=== PATIENT | male | born 1950 | race Caucasian/White ===

== ENCOUNTER 2017-08-02 08:38 | Inpatient (IN) ==
[2017-08-02] MEDS ORDERED: ANTIHEMOPHILIC FACTOR IVPB ONE ×3 (09:23→10:30)
[2017-08-02] MEDS ORDERED: VWF IVPB ONE ×3 (09:23→10:30)
[2017-08-02] MEDS: 0.9 % Sodium Chloride 1,000 ML IVC SCH (10:33)
--- NOTE | 2017-08-02 12:20 | Pre-Sedation Evaluation ---
Pre-sedation evaluation - Pre-sedation checklist Date of procedure: 08/02/17 Procedure: PPM Recent Vitals: Last Vital Signs Temp 98 F 08/02/17 10:24 Pulse 52 08/02/17 10:24 Resp 16 08/02/17 10:24 BP 115/69 08/02/17 10:24 Pulse Ox 96 08/02/17 10:24 H&P (including ROS) documented in medical record: No (NEED UPDATE) Previous reaction to sedatives/anesthetics: No Dietary Status: NPO after Midnight Airway Assessment: Patient can open mouth completely, TMJ function normal, Micrognathia (under-bite, receding chin) absent Dentition: No loose teeth or bridges Possible difficult airway: No ASA Classification *see protocol: CLASS II-Mild systemic disease Plan of Care: Pt appropriate candidate for procedure/moderate/conscious sedation , Risks/benefits of procedure/sedation discussed w/ patient/family
--- NOTE | 2017-08-02 12:20 | History & Physical Report ---
Date of Encounter: 08/02/17 Time of Encounter: 12:19 24 Hour HP Update - Instructions Instructions: If the History and Physical is less than 30 days old and was completed prior to A.M. admission and or procedure and has NOT been updated on calendar day of procedure please complete this update prior to performing procedure. - Update Patient reports changes in Medical Condition: No Changes in examination, assessment, or condition: No Changes in Medication: No Preop tests/diagnostics Reviewed: Yes Surgery Remains Indicated: Yes Consent for Planned Operative Procedure(s) Verified: Yes - Pre-Operative Checklist Preoperative Checklist Indicated: Yes Prophylactic Antibiotic Ordered: Yes
[2017-08-02] MEDS ORDERED: methylPREDNISolone 125 MG/2 ML VIAL IVP PRN (12:52)
[2017-08-02] MEDS ORDERED: Clindamycin 600 MG/50 ML 1,200 MG/100 ML IV.SOLN IVPB ONE (13:00)
[2017-08-02] MEDS ORDERED: 0.9 % Sodium Chloride 500 ML ONE (13:00)
[2017-08-02] MEDS ORDERED: methylPREDNISolone 125 MG/2 ML VIAL ONE (13:00)
[2017-08-02] MEDS ORDERED: *HR* Midazolam HCl 2 MG/2 ML VIAL ONE (13:29)
[2017-08-02] MEDS ORDERED: *HR* FentaNYL (PF) 100 MCG/2 ML VIAL ONE (13:30)
[2017-08-02] MEDS ORDERED: Triamcinolone Acet 0.1% CRM 15 GM TUBE TP PRN (15:25)
[2017-08-02] MEDS ORDERED: Hydrocortisone Rectal 2.5% CRM 28 GM TUBE RC PRN (15:25)
[2017-08-02] MEDS ORDERED: GuaiFENesin Liq 200 MG/10 ML UDC PO PRN (15:25)
--- NOTE | 2017-08-02 15:55 | Electrocardiograph Report ---
[place] [address] Test Date: 2017-08-02 Pat Name: Kentrell Zepeda Department: 106 Room: Gender: M Blender / Cook: : 1950 Requested By: Kentrell Molina Order Number: [id number] Reading MD: Mary Jimenez Measurements Intervals [place] Rate: 48 P: 29 VA: 274 QRS: 12 QRSD: 113 T: 85 QT: 453 QTc: 419 Interpretive Statements SINUS BRADYCARDIA WITH FIRST DEGREE AV BLOCK INTRAVENTRICULAR CONDUCTION DELAY NONSPECIFIC ST & T-WAVE ABNORMALITY Electronically Signed On 08-02-2017 15:54:24 EDT by Mary Jimenez
--- NOTE | 2017-08-02 17:32 | Oncology Inp Consult Note ---
<Margo Harry - Last Filed: 08/03/17 10:49> Date of Encounter: 08/02/17 Time of Encounter: 17:32 Assessment and Plan (1) Von Willebrand disease Status: Acute Assessment and plan: Von Willebrand's disease type II M. S/P permanent pacemaker placement today without complication. He did have hives following his administration of Humate P in the semiconductor lab technician- recommend Benadryl be administered 30 minutes prior to upcoming Humate P infusions Unfotunately, we are unable to obtain serial von Willebrand panels at this facility as this is a send out lab-will plan to administer Humate P daily for a total of 5 days as dosed per Dr. Lozano, ending with his last dose on Tuesday. Clinically, he doing quite well and without any evidence of bleeding. The plan as above was discussed with patient and patients at bedside today. - Data of Consult Patient: known to practice within the last 3 years Consult date: 08/02/17 Requesting Physician: Kentrell Molina, Primary Care Provider: PCP NM - Consult Narrative Reason for consult: Type 2M von Willebrand Disease History of present illness: Mr. Zepeda is a 66 year old male with Type 2M von Willebrand Disease, history of postoperative provoked PE, symptomatic bradycardia, right neck pain with radiculopathy. He presents for pacemaker placement and is admitted for perioperative management of his 2M von Willebrand Disease with daily serial Humate P infusions. He unfortunately failed his DDAVP administration trial. His permanent pacemaker was placed on 08/02/[address] Molina. He did experiences a hive breakout with his Humate P administration in the semiconductor lab technician and was given benadryl which resolved his symptoms. Past Med Surg Social Fam HX - Past Medical History Medical history: COPD, diabetes, hypertension, valvular heart disease, other Psychiatric history: anxiety, depression, PTSD - Social History Smoking Status: Former smoker Smokeless Tobacco Status: No Alcohol use: none Drug use: none Medications and Allergies Amlodipine Besylate 5 mg PO DAILY 05/27/17 [History] Aspirin [Lo-Dose Aspirin EC] 81 mg PO DAILY 05/27/17 [History] Budesonide/Formoterol 160/4.5 [Symbicort 160/4.5] 2 puff IH BIDR 05/27/17 [ History] Furosemide [Lasix] 40 mg PO DAILY 05/27/17 [History] Hydrocortisone [Proctozone-Hc] 30 gm RC BID PRN 05/27/17 [History] Lisinopril [Zestril] 20 mg PO BID 05/27/17 [History] Omeprazole [PriLOSEC] 20 mg PO DAILY 05/27/17 [History] Sertraline [Zoloft] 100 mg PO DAILY 05/27/17 [History] Trazodone HCl 200 mg PO HS 05/27/17 [History] Albuterol Sulfate [Proventil Hfa] 6.7 gm IH DAILY 08/02/17 [History] Atorvastatin [Lipitor] 20 mg PO HS 08/02/17 [History] Guaifenesin 400 mg PO QID PRN 08/02/17 [History] HYDROcodone/Acet 5/325 mg [[place] 5-325 mg] 1 tab PO Q8H PRN 08/02/17 [History] Mupirocin [Bactroban Oint] 22 gm TP DAILY PRN 08/02/17 [History] Triamcinolone Acet 0.1% CRM [Kenalog] 1 appl TP BID PRN 08/02/17 [History] 3 Allergy/AdvReac Type Severity Reaction Status Date / Time Penicillins Allergy Swelling Verified 05/31/16 15:29 of Lip/Tongue/Throat Constitutional: Absent: chills, fatigue, fever(s), weakness Eyes: Absent: change in vision Nose, mouth and throat: Absent: bleeding gums, dysphagia Cardiovascular: Absent: chest pain, irregular heart rhythm, palpitations Additional comments: report post operative incision discomfort and left shoulder/muscular pain with movement Respiratory: Present: as per HPI. Absent: cough, dyspnea, wheezing Gastrointestinal: Absent: abdominal pain, change in bowel habits, hematemesis, hematochezia, melena, nausea, vomiting Additional comments: denies dysuria or hematuria Musculoskeletal: Present: as per HPI, neck pain Integumentary: Present: as per HPI Neurological: Absent: focal weakness, frequent falls Psychiatric: Absent: change in appetite Additional comments: reports anxiety regarding his procedure Hematologic/Lymphatic: Present: as per HPI Oncology - Exam - Constitutional Vitals: Temp Pulse Resp BP Pulse Ox 97.5 F L 61 14 135/80 94 08/02/17 15:30 08/02/17 15:55 08/02/17 15:55 08/02/17 15:55 08/02/17 15:55 General appearance: cooperative, no acute distress, no febrile - Head Head exam: Present: atraumatic - ENT ENT exam: Present: mucous membranes moist - Respiratory Respiratory exam: Present: CTAB. Absent: respiratory distress - Cardiovascular Cardiovascular exam: Present: RRR, +S1, +S2 - GI/Abdominal GI/Abdominal exam: Present: normal bowel sounds, soft. Absent: tenderness - Extremities Exam Extremities exam: Present: normal inspection. Absent: calf tenderness - Neurological Exam Neurological exam: Present: alert, oriented X3, no focal deficits, strengths equal and symetr throughout - Psychiatric Psychiatric exam: Present: normal affect, normal mood - Skin Skin exam: Present: dry, normal color, warm Additional comments: surgical incision to left upper chest with no drainage/bleeding,dressing dry and intact Consult Discharge Plan - Plan [facility]errals: [facility] [Primary Care Provider] - <Rajat Raygoza - Last Filed: 08/03/17 17:41> Date of Encounter: 08/03/17 - Data of Consult Requesting Physician: Kentrell Molina, Primary Care Provider: PCP NM - Consult Narrative History of present illness: Mr. Zepeda is a 66 year old male Oncology - Exam - Constitutional Vitals: Temp Pulse Resp BP Pulse Ox 97.5 F L 69 14 118/74 92 08/02/17 15:30 08/02/17 17:52 08/02/17 15:55 08/02/17 17:52 08/02/17 17:52 - Attending Attestation Von Willebrand's disease type II M. Mostly autosomal dominant He was diagnosed at hematology [facility] in 2004. As then he had only 2 times where he has to have Humate-P last one around 2014 Had blunt trauma to knee/leg one time but did not have major bleeding and he did not go to the doctor. But he has increased bleeding when he cuts himself His von Willebrand's factor activity baseline was around 30% indicating moderate disease. On von Willebrand Antigen levels are normal and factor VIII activity was 50% on May 2017 Normal multimer distribution If the factor activity is more than 30% the risk of bleeding is fairly low Patients with type II AM do not respond well to DDAVP. Humate-P to bring factor levels more than 50% recommended during any surgical procedure 2. He had pacemaker introduced placed today on 08/02/2017. Had 1 dose of Humate-P her to the procedure. Apparently he had allergic type reaction with some shortness of breath. His cussed with that patient address mostly hives. Usually allergic reactions happen when there are inhibitors. We will check von Willebrand activity tomorrow and factor VIII activity. He would not have the results back in time. Discussed with Dr Lozano. The plan is to give further doses of Humate-P as planned with the Benadryl to minimize allergic reaction Discussed with patient. Humate-P is a blood products and allergic reactions can happen due to various reasons like any other blood products. He has recurrent reactions may consider give Decadron 4 mg IV prior to the Humate-P Clinically he is doing well without evidence of bleeding
[2017-08-02] MEDS ORDERED: Clindamycin 900 MG/50 ML 900 MG/50 ML IV.SOLN IVPB SCH (18:00)
[2017-08-02] MEDS: traZODone 50 MG TABLET PO SCH (19:42)
[2017-08-02] MEDS: Lisinopril 20 MG TABLET PO SCH (19:42)
[2017-08-02] MEDS: Budesonide/Formoterol 160/4.5 MDI IH SCH (20:40)
[2017-08-02] MEDS: *HR* HYDROcodone/Acet 5/325 mg TABLET PO PRN (20:57)
[2017-08-03 07:40] LABS: BUN/Creatinine Ratio 26 (6-26); Blood Urea Nitrogen 18 mg/dL (8-23); Carbon Dioxide 29 mEq/L (23-29); Chloride 104 mEq/L (98-107); Potassium 4.2 mEq/L (3.5-5.1); Sodium 138 mEq/L (136-145); eGFR For African Americans > 60 (> 60); eGFR For Non-African Americans > 60 (> 60)
[2017-08-03] MEDS: Budesonide/Formoterol 160/4.5 MDI IH SCH ×2 (07:45→22:31)
[2017-08-03] MEDS: Lisinopril 20 MG TABLET PO SCH ×2 (08:17→21:04)
[2017-08-03] MEDS: Furosemide 40 MG TABLET PO SCH (08:17)
[2017-08-03] MEDS: amLODIPine 5 MG TABLET PO SCH (08:17)
[2017-08-03] MEDS: *HR* HYDROcodone/Acet 5/325 mg TABLET PO PRN ×2 (08:17→21:03)
[2017-08-03] MEDS: Aspirin Enteric Coated 81 MG Tablet PO SCH (08:17)
[2017-08-03 08:55] LABS: Hemoglobin 13.1 g/dL (12.9-16.9); Mean Corpuscular HGB Conc 33.6 g/dL (31.6-35.5); Mean Corpuscular Hemoglobin 27.7 pg (28.0-33.3); Mean Corpuscular Volume 82.5 fL (83.0-100.0); Mean Platelet Volume 9.8 fL (9.4-12.4); Platelet Count 185 K/mcL (140-400); Red Blood Count 4.73 M/mcL (4.19-5.50); Red Cell Distribution Width 13.8 % (11.5-14.5)
[2017-08-03] MEDS ORDERED: ANTIHEMOPHILIC FACTOR IVPB ONE (09:00)
[2017-08-03] MEDS ORDERED: WATER FOR INJ IVPB ONE (09:00)
[2017-08-03] MEDS ORDERED: [UNRECOGNIZED DRUG - OTHER] IVPB ONE (09:00)
[2017-08-03] MEDS ORDERED: ANTIHEMOPHILIC FACTOR IVPB SCH (09:00)
[2017-08-03] MEDS ORDERED: VWF IVPB ONE (09:00)
[2017-08-03] MEDS ORDERED: VWF IVPB SCH (09:00)
[2017-08-03] MEDS: 0.9 % Sodium Chloride 1,000 ML IVC SCH (09:32)
--- NOTE | 2017-08-03 10:25 | Electrophysiology ProgressNote ---
Date of Encounter: 08/03/17 Time of Encounter: 10:00 Assessment and Plan (1) S/P cardiac pacemaker procedure Current Visit: Yes Status: Acute Per EP: -S/p pacemaker yesterday for sick sinus syndrome. -Chest x-ray without evidence of pneumothorax. -Left chest wall dressing clean, dry, intact. -Device check with normal functioning pacemaker. -Hemoglobin stable. -Will continue to monitor, will need to be inpatient for humate infusions per hematology. -Plan for discharge when ok with hematology. (2) Von Willebrand disease Current Visit: No Status: Chronic Per cardiology: -Known von willebrand disease. -Receiving humate infusions. -PLan for last infusion on Tuesday, per hematology note. -Appreciate hematology recommendations and assistance. Discussion w patient/family: The assessment and plan as outlined above was discussed with the patient and/or family members who expressed understanding and agreement. All questions were answered. Thank you for involving us in the care of your patient. Please call with any questions. Discussed and reviewed with Dr.John Molina. Subjective Principal diagnosis: s/p pacemaker Interval history: Patient is s/p permanent pacemaker placement yesterday. Is receiving humate infusions per hematology for von willebrands. Objective Vital Signs, Last 4 Hours Temp Pulse Resp BP Pulse Ox 08/03/17 07:53 97 08/03/17 07:49 18 97 08/03/17 07:13 97.4 F L 61 154/83 96 General: Conversant, No Apparent Distress HEENT: Atraumatic, Normocephaly, Mucus Membranes Moist Neck: No JVD, Normal carotid pulses Cardiac: Reg Rate and Rhythm, Normal S1 and S2, No Murmur Lungs: Normal Breath Sounds, No Wheeze, Rales, Rhonchi Neuro: Alert and responsive, No focal deficits noted Abdomen: Soft, Non-Tender Skin: No rashes noted on visualized skin Musculoskeletal: No Chest Wall Tenderness, Other (Left chest wall dressing clean , dry, intact. ) Extremities: No Clubbing, No Cyanosis, No Edema, Normal Pulses Results 08/03/17 08:35 08/03/17 07:09 Lab Results Impressions Chest X-Ray 08/02/17 14:31 IMPRESSION: Placement of a cardiac pacer device. No pneumothorax. No significant change otherwise compared to prior examination. D/ / 08/02/2017 16:22:14 Rubens Laguna MD / naveen Interpreting Provider: Rubens Laguna MD Chest X-Ray 08/03/17 06:00 IMPRESSION: No acute cardiopulmonary process. Pacemaker. D/ / Vanessa Malave MD / Vanessa Malave MD Interpreting Provider: Vanessa Malave MD Active Medications Hydrocodone Bitart/Acetaminophen ([place] 5-325 Mg) 1 tab PO Q8H PRN PRN Reason: Pain Stop: 02/01/18 15:26 Last Admin: 08/03/17 08:17 Dose: 1 tab Albuterol Sulfate (Albuterol Inhaler) 2 puff IH Q2H PRN PRN Reason: Shortness Of Breath/Wheezing Stop: 02/02/18 07:31 Last Admin: 08/03/17 07:45 Dose: 2 puff Amlodipine Besylate (Norvasc) 5 mg PO DAILY RANDEE Stop: 02/02/18 09:01 Last Admin: 08/03/17 08:17 Dose: 5 mg Aspirin (Aspirin Ec) 81 mg PO DAILY RANDEE Stop: 02/02/18 09:01 Last Admin: 08/03/17 08:17 Dose: 81 mg Atorvastatin Calcium (Lipitor) 20 mg PO HS RANDEE Stop: 02/01/18 21:01 Last Admin: 08/02/17 19:42 Dose: 20 mg Budesonide/Formoterol Fumarate (Symbicort) 2 puff IH BIDR RANDEE PRN Reason: Protocol Stop: 02/01/18 22:01 Last Admin: 08/03/17 07:45 Dose: 2 puff Furosemide (Lasix) 40 mg PO DAILY RANDEE Stop: 02/02/18 09:01 Last Admin: 08/03/17 08:17 Dose: 40 mg Guaifenesin (Robitussin Liq) 400 mg PO QID PRN PRN Reason: Congestion Hydrocortisone (Proctosol-Hc) 1 appl RC BID PRN; Protocol PRN Reason: Itching Stop: 02/01/18 15:26 Sodium Chloride (0.9 % Sodium Chloride) 1,000 mls @ 25 mls/hr IVC .Q24H RANDEE Stop: 02/01/18 09:16 Last Admin: 08/03/17 09:32 Dose: Not Given Antihemophilic/von Willebr. Factors 4,234 unit/ Sterile Water 35 ml/ Miscellaneous 35 mls @ 4 mls/min IVPB ONCE ONE Stop: 08/04/17 09:08 Antihemophilic/von Willebr. Factors 4,637 unit/ Sterile Water 40 ml/ Miscellaneous 40 mls @ 4 mls/min IVPB ONCE ONE Stop: 08/05/17 09:09 Antihemophilic/von Willebr. Factors 4,637 unit/ Sterile Water 40 ml/ Miscellaneous 40 mls @ 4 mls/min IVPB ONCE ONE Stop: 08/06/17 09:09 Lisinopril (Zestril) 20 mg PO BID RANDEE PRN Reason: Protocol Stop: 02/01/18 21:01 Last Admin: 08/03/17 08:17 Dose: 20 mg Methylprednisolone (Solu-Medrol) 125 mg IVP ONCE PRN PRN Reason: Allergic Symptoms Stop: 02/01/18 12:53 Mupirocin (Bactroban Oint) 22 appl TP DAILY PRN PRN Reason: Rash Stop: 02/01/18 15:26 Omeprazole (Prilosec) 20 mg PO 0630 RANDEE PRN Reason: Protocol Stop: 02/02/18 06:31 Last Admin: 08/03/17 05:01 Dose: 20 mg Sertraline HCl (Zoloft) 100 mg PO DAILY [facility] Stop: 02/02/18 09:01 Last Admin: 08/03/17 08:17 Dose: 100 mg Trazodone HCl (Trazodone) 200 mg PO HS [facility] Stop: 02/01/18 21:01 Last Admin: 08/02/17 19:42 Dose: 200 mg Triamcinolone Acetonide (Kenalog) 1 appl TP BID PRN PRN Reason: Rash Stop: 02/01/18 15:26 Laboratory Tests 08/01/17 08/03/17 08/03/17 16:26 07:09 08:35 Hgb 13.2 13.1 Creatinine 0.69 L - Imaging and Cardiology Chest Xray: report reviewed Echo: report reviewed - EKG Interpretation EKG results cardiology: other (Telemetry reviewed with average HR previous 12 hours noted to be 66, paced rhythm. PVCs noted.) Consult Discharge Plan - Plan [facility]errals: [facility] [Primary Care Provider] -
--- NOTE | 2017-08-03 11:10 | Oncology Inp Progress Note ---
<Margo Harry L - Last Filed: 08/04/17 09:10> Date of Encounter: 08/03/17 Time of Encounter: 09:00 (1) Von Willebrand disease Current Visit: No Status: Chronic Assessment and plan: Von Willebrand's disease type II M. POD #1 permanent pacemaker placement today without complication. He did have hives following his administration of Humate P in the laborer tin can- recommend Benadryl be administered 30 minutes prior to upcoming Humate P infusions. He tolerated his Humate P with benadryl prior very well today without complication Unfortunately, we are unable to obtain serial von Willebrand panels at this facility as this is a send out lab-will plan to continue to administer Humate P Q24h for a total of 5 days as dosed per treating childcare aide Dr. Lozano, ending with his last dose on Tuesday. Clinically, he doing quite well and without any evidence of bleeding. Oncology: Subj Interval history: Mr. Zepeda is doing well, no events overnight. His incision is dry and clean, no clinical evidence of bleeding at this time. His is at bedside. He reports post operative pain and tenderness to his left shoulder/incision site. Otherwise, he is doing well. - Constitutional Vitals: Vital Signs Temp Pulse Resp BP Pulse Ox 08/03/17 10:42 97.3 F L 60 20 132/68 95 08/03/17 07:53 97 08/03/17 07:49 18 97 08/03/17 07:13 97.4 F L 61 154/83 96 08/03/17 04:03 97.8 F 60 18 124/72 93 08/02/17 23:52 97.9 F 64 18 125/71 94 08/02/17 20:43 18 94 08/02/17 19:04 98.5 F 76 18 150/84 94 08/02/17 17:52 69 118/74 92 08/02/17 17:25 60 124/77 95 08/02/17 16:25 66 126/73 93 08/02/17 15:55 61 14 135/80 94 08/02/17 15:30 97.5 F L 60 20 146/83 94 08/02/17 14:55 97.8 F 60 16 179/83 94 Intake and Output 08/02/17 08/03/17 08/03/17 23:59 07:59 15:59 Intake Total 410 / 410 Balance 410 / 410 Intake: IV Fluids 50 / 50 Oral 360 / 360 Other: Meal Breakfast Percent of Meal Consumed 100% Weight 149.912 kg Patient Weight 08/03/17 23:59 Weight 149.912 kg General appearance: cooperative, no acute distress, no febrile - Head Head exam: Present: atraumatic - ENT ENT exam: Present: mucous membranes moist - Respiratory Respiratory exam: Present: CTAB. Absent: respiratory distress - Cardiovascular Cardiovascular exam: Present: RRR, +S1, +S2 - GI/Abdominal GI/Abdominal exam: Present: normal bowel sounds, soft. Absent: tenderness - Extremities Exam Extremities exam: Present: normal inspection. Absent: calf tenderness - Neurological Exam Neurological exam: Present: alert, oriented X3, no focal deficits, strengths equal and symetr throughout - Psychiatric Psychiatric exam: Present: normal affect, normal mood - Skin Skin exam: Present: dry, normal color, warm Additional comments: dressing to left chest dry and intact, no bleeding Oncology: Obj Data - Labs CBC & Chem 7: 08/03/17 08:35 08/03/17 07:09 Labs: Laboratory Results - last 24 hr 08/03/17 08/03/17 07:09 08:35 WBC 10.8 D RBC 4.73 Hgb 13.1 Hct 39.0 MCV 82.5 L MCH 27.7 L MCHC 33.6 RDW 13.8 Plt Count 185 MPV 9.8 Sodium 138 Potassium 4.2 Chloride 104 Carbon Dioxide 29 BUN 18 Creatinine 0.69 L Est GFR ( Amer) > 60 Est GFR (Non-Af Amer) > 60 BUN/Creatinine Ratio 26 - Impressions Impressions Chest X-Ray 08/02/17 14:31 IMPRESSION: Placement of a cardiac pacer device. No pneumothorax. No significant change otherwise compared to prior examination. D/ / 08/02/2017 16:22:14 Rubens Laguna MD / naveen Interpreting Provider: Rubens Laguna MD Chest X-Ray 08/03/17 06:00 IMPRESSION: No acute cardiopulmonary process. Pacemaker. D/ / 08/03/2017 10:38:40 Vanessa Malave MD / malcom Interpreting Provider: Vanessa Malave MD Consult Discharge Plan - Plan Referrals: [facility] [Primary Care Provider] - <Rajat Raygoza S - Last Filed: 08/04/17 19:00> Date of Encounter: 08/04/17 - Constitutional Vitals: Vital Signs Temp Pulse Resp BP Pulse Ox 08/03/17 10:42 97.3 F L 60 20 132/68 95 08/03/17 07:53 97 08/03/17 07:49 18 97 08/03/17 07:13 97.4 F L 61 154/83 96 08/03/17 04:03 97.8 F 60 18 124/72 93 08/02/17 23:52 97.9 F 64 18 125/71 94 08/02/17 20:43 18 94 08/02/17 19:04 98.5 F 76 18 150/84 94 Intake and Output 08/03/17 08/03/17 08/03/17 07:59 15:59 23:59 Intake Total 685 / 685 Balance 685 / 685 Intake: IV Fluids 85 / 85 Humate-P 2,400 UNIT VWF:RCO 4, 35 / 35 242 UNIT Water for inj. ( sterile) 35 ML In Empty Bag 0 Each @ 4 mls/min IVPB ONCE ONE Rx#:[id number] Oral 600 / 600 Other: Meal Lunch Percent of Meal Consumed 100% Weight 149.912 kg Patient Weight 08/03/17 23:59 Weight 149.912 kg Oncology: Obj Data - Labs CBC & Chem 7: 08/04/17 08:59 08/04/17 08:59 Labs: Laboratory Results - last 24 hr 08/03/17 08/03/17 07:09 08:35 WBC 10.8 D RBC 4.73 Hgb 13.1 Hct 39.0 MCV 82.5 L MCH 27.7 L MCHC 33.6 RDW 13.8 Plt Count 185 MPV 9.8 Sodium 138 Potassium 4.2 Chloride 104 Carbon Dioxide 29 BUN 18 Creatinine 0.69 L Est GFR ( Amer) > 60 Est GFR (Non-Af Amer) > 60 BUN/Creatinine Ratio 26 - Impressions Impressions Chest X-Ray 08/03/17 06:00 IMPRESSION: No acute cardiopulmonary process. Pacemaker. D/ / 08/03/2017 10:38:40 Vanessa Malave MD / malcom Interpreting Provider: Vanessa Malave MD - Attending Attestation I examined this patient and my medical decision-making was reviewed with the Advanced Practice Nurse. I agree with the documented findings, disposition and treatment plan as described except to the extent set forth below. Von Willebrand disease type II M Discussed with Dr. Lozano. Plan is to give von Willebrand factor IV daily until Tuesday. We cannot base the Humate-P infusion on the levels as we do not have a local lab for von Willebrand factor assay He is doing well without evidence of bleeding
[2017-08-03] MEDS: traZODone 50 MG TABLET PO SCH (21:04)
[2017-08-04] MEDS ORDERED: [UNRECOGNIZED DRUG - OTHER] IVPB ONE (09:00)
[2017-08-04] MEDS ORDERED: VWF IVPB ONE (09:00)
[2017-08-04] MEDS ORDERED: WATER FOR INJ IVPB ONE (09:00)
[2017-08-04] MEDS ORDERED: ANTIHEMOPHILIC FACTOR IVPB ONE (09:00)
[2017-08-04] MEDS: 0.9 % Sodium Chloride 1,000 ML IVC SCH (09:07)
[2017-08-04] MEDS: Aspirin Enteric Coated 81 MG Tablet PO SCH (09:15)
[2017-08-04] MEDS: Furosemide 40 MG TABLET PO SCH (09:15)
[2017-08-04] MEDS: amLODIPine 5 MG TABLET PO SCH (09:15)
[2017-08-04] MEDS: Lisinopril 20 MG TABLET PO SCH ×2 (09:15→20:07)
[2017-08-04 09:28] LABS: Hematocrit 38.5 % (37.5-50.1); Hemoglobin 12.9 g/dL (12.9-16.9); Mean Corpuscular HGB Conc 33.5 g/dL (31.6-35.5); Mean Corpuscular Hemoglobin 28.4 pg (28.0-33.3); Mean Corpuscular Volume 84.8 fL (83.0-100.0); Mean Platelet Volume 9.7 fL (9.4-12.4); Platelet Count 160 K/mcL (140-400); Red Blood Count 4.54 M/mcL (4.19-5.50); Red Cell Distribution Width 14.3 % (11.5-14.5)
[2017-08-04 09:38] LABS: BUN/Creatinine Ratio 28 (6-26); Blood Urea Nitrogen 21 mg/dL (8-23); Carbon Dioxide 29 mEq/L (23-29); Chloride 103 mEq/L (98-107); Glucose 106 mg/dL (70-105); Osmolality,Calculated 293 (280-300); Potassium 4.1 mEq/L (3.5-5.1); Sodium 140 mEq/L (136-145); eGFR For African Americans > 60 (> 60); eGFR For Non-African Americans > 60 (> 60)
--- NOTE | 2017-08-04 09:44 | Electrophysiology ProgressNote ---
Date of Encounter: 08/04/17 Time of Encounter: 08:30 Assessment and Plan (1) S/P cardiac pacemaker procedure Current Visit: Yes Status: Acute Per EP: -S/p pacemaker yesterday for sick sinus syndrome. -Chest x-ray without evidence of pneumothorax. -Left chest wall dressing removed. Steri-strips intact. No active bleeding noted. -Device check with normal functioning pacemaker. -Hemoglobin stable. -Reports left chest wall tenderness around incision site. ECG today with paced rhythm. -Will continue to monitor, will need to be inpatient for humate infusions per hematology. -Plan for discharge when ok with hematology. (2) Von Willebrand disease Current Visit: No Status: Chronic Per cardiology: -Known von willebrand disease. -Receiving humate infusions. -No active bleeding or blood loss noted. Hemoglobin stable. -PLan for last infusion on Tuesday, per hematology note. -Appreciate hematology recommendations and assistance. Discussion w patient/family: The assessment and plan as outlined above was discussed with the patient and/or family members who expressed understanding and agreement. All questions were answered. Thank you for involving us in the care of your patient. Please call with any questions. Discussed and reviewed with Dr.John Molina. Subjective Principal diagnosis: s/p pacemaker Interval history: Patient is s/p permanent pacemaker placement yesterday. Is receiving humate infusions per hematology for von willebrands. Reports left chest wall pain around incision site. Objective Vital Signs, Last 4 Hours Temp Pulse Resp BP Pulse Ox 08/04/17 07:30 97.6 F 60 16 134/83 97 General: Conversant, No Apparent Distress HEENT: Atraumatic, Normocephaly, Mucus Membranes Moist Neck: No JVD, Normal carotid pulses Cardiac: Reg Rate and Rhythm, Normal S1 and S2, No Murmur Lungs: Normal Breath Sounds, No Wheeze, Rales, Rhonchi Neuro: Alert and responsive, No focal deficits noted Abdomen: Soft, Non-Tender Skin: No rashes noted on visualized skin Musculoskeletal: Other (Left chest wall tenderness. Dressing removed. Ster- strips intact. ) Extremities: No Clubbing, No Cyanosis, No Edema, Normal Pulses Results 08/04/17 08:59 08/04/17 08:59 Lab Results Impressions Chest X-Ray 08/03/17 06:00 IMPRESSION: No acute cardiopulmonary process. Pacemaker. D/ / 08/03/2017 10:38:40 Vanessa Malave MD / earnold Interpreting Provider: Vanessa Malave MD Active Medications Hydrocodone Bitart/Acetaminophen (Valier 5-325 Mg) 1 tab PO Q8H PRN PRN Reason: Pain Stop: 02/01/18 15:26 Last Admin: 08/03/17 21:03 Dose: 1 tab Albuterol Sulfate (Albuterol Inhaler) 2 puff IH Q2H PRN PRN Reason: Shortness Of Breath/Wheezing Stop: 02/02/18 07:31 Last Admin: 08/03/17 07:45 Dose: 2 puff Amlodipine Besylate (Norvasc) 5 mg PO DAILY RANDEE Stop: 02/02/18 09:01 Last Admin: 08/04/17 09:15 Dose: 5 mg Aspirin (Aspirin Ec) 81 mg PO DAILY RANDEE Stop: 02/02/18 09:01 Last Admin: 08/04/17 09:15 Dose: 81 mg Atorvastatin Calcium (Lipitor) 20 mg PO HS RANDEE Stop: 02/01/18 21:01 Last Admin: 08/03/17 21:03 Dose: 20 mg Budesonide/Formoterol Fumarate (Symbicort) 2 puff IH BIDR RANDEE PRN Reason: Protocol Stop: 02/01/18 22:01 Last Admin: 08/03/17 22:31 Dose: 2 puff Diphenhydramine HCl (Benadryl) 25 mg IVP DAILY PRN PRN Reason: SEE COMMENTS Stop: 02/03/18 08:31 Last Admin: 08/04/17 08:33 Dose: 25 mg Furosemide (Lasix) 40 mg PO DAILY RANDEE Stop: 02/02/18 09:01 Last Admin: 08/04/17 09:15 Dose: 40 mg Guaifenesin (Robitussin Liq) 400 mg PO QID PRN PRN Reason: Congestion Hydrocortisone (Proctosol-Hc) 1 appl RC BID PRN; Protocol PRN Reason: Itching Stop: 02/01/18 15:26 Sodium Chloride (0.9 % Sodium Chloride) 1,000 mls @ 25 mls/hr IVC .Q24H RANDEE Stop: 02/01/18 09:16 Last Admin: 08/04/17 09:07 Dose: Not Given Antihemophilic/von Willebr. Factors 4,637 unit/ Sterile Water 40 ml/ Miscellaneous 40 mls @ 4 mls/min IVPB ONCE ONE Stop: 08/05/17 09:09 Antihemophilic/von Willebr. Factors 4,637 unit/ Sterile Water 40 ml/ Miscellaneous 40 mls @ 4 mls/min IVPB ONCE ONE Stop: 08/06/17 09:09 Lisinopril (Zestril) 20 mg PO BID ARNDEE PRN Reason: Protocol Stop: 02/01/18 21:01 Last Admin: 08/04/17 09:15 Dose: 20 mg Methylprednisolone (Solu-Medrol) 125 mg IVP ONCE PRN PRN Reason: Allergic Symptoms Stop: 02/01/18 12:53 Mupirocin (Bactroban Oint) 22 appl TP DAILY PRN PRN Reason: Rash Stop: 02/01/18 15:26 Omeprazole (Prilosec) 20 mg PO 0630 RANDEE PRN Reason: Protocol Stop: 02/02/18 06:31 Last Admin: 08/04/17 05:58 Dose: 20 mg Sertraline HCl (Zoloft) 100 mg PO DAILY RANDEE Stop: 02/02/18 09:01 Last Admin: 08/04/17 09:15 Dose: 100 mg Trazodone HCl (Trazodone) 200 mg PO HS RANDEE Stop: 02/01/18 21:01 Last Admin: 08/03/17 21:04 Dose: 200 mg Triamcinolone Acetonide (Kenalog) 1 appl TP BID PRN PRN Reason: Rash Stop: 02/01/18 15:26 Laboratory Tests 08/03/17 08/04/17 08/04/17 08:35 08:59 08:59 Hgb 13.1 12.9 Creatinine 0.74 - Imaging and Cardiology Chest Xray: report reviewed Echo: report reviewed - EKG Interpretation EKG results cardiology: personally reviewed (ECG today with paced rhythm, HR 60. ), other (Telemetry reveiwed with average HR previous 12 hours noted to be 60, paced rhythm.) - VTE Reasons for not Prescribing Prophylaxis: Medical contraindication Consult Discharge Plan - Plan [facility]errals: [facility] [Primary Care Provider] -
[2017-08-04] MEDS: Budesonide/Formoterol 160/4.5 MDI IH SCH ×2 (10:22→22:35)
--- NOTE | 2017-08-04 15:04 | Electrocardiograph Report ---
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
[2017-08-04] MEDS: *HR* HYDROcodone/Acet 5/325 mg TABLET PO PRN (20:06)
[2017-08-04] MEDS: traZODone 50 MG TABLET PO SCH (20:07)
[2017-08-05] MEDS: Budesonide/Formoterol 160/4.5 MDI IH SCH ×2 (07:51→22:26)
[2017-08-05 08:28] LABS: Ristocetin Cofactor-VWF Active 22 % (51-215); Von Willebrand Factor Ag 118 % (52-214)
[2017-08-05 08:43] LABS: Hematocrit 39.5 % (37.5-50.1); Hemoglobin 13.4 g/dL (12.9-16.9); Mean Corpuscular HGB Conc 33.9 g/dL (31.6-35.5); Mean Corpuscular Hemoglobin 28.5 pg (28.0-33.3); Mean Platelet Volume 9.6 fL (9.4-12.4); Platelet Count 166 K/mcL (140-400); Red Cell Distribution Width 14.1 % (11.5-14.5)
[2017-08-05] MEDS: amLODIPine 5 MG TABLET PO SCH (08:49)
[2017-08-05] MEDS: Furosemide 40 MG TABLET PO SCH (08:49)
[2017-08-05] MEDS: Aspirin Enteric Coated 81 MG Tablet PO SCH (08:49)
[2017-08-05] MEDS: Lisinopril 20 MG TABLET PO SCH ×2 (08:49→21:20)
[2017-08-05] MEDS ORDERED: VWF IVPB ONE (09:00)
[2017-08-05] MEDS ORDERED: [UNRECOGNIZED DRUG - OTHER] IVPB ONE (09:00)
[2017-08-05] MEDS ORDERED: ANTIHEMOPHILIC FACTOR IVPB ONE (09:00)
[2017-08-05] MEDS ORDERED: WATER FOR INJ IVPB ONE (09:00)
[2017-08-05 09:02] LABS: BUN/Creatinine Ratio 23 (6-26); Blood Urea Nitrogen 17 mg/dL (8-23); Calcium 9.2 mg/dL (8.6-10.3); Carbon Dioxide 36 mEq/L (23-29); Chloride 103 mEq/L (98-107); Glucose 128 mg/dL (70-105); Osmolality,Calculated 293 (280-300); Potassium 3.6 mEq/L (3.5-5.1); Sodium 140 mEq/L (136-145); eGFR For African Americans > 60 (> 60); eGFR For Non-African Americans > 60 (> 60)
[2017-08-05] MEDS: 0.9 % Sodium Chloride 1,000 ML IVC SCH (09:45)
[2017-08-05] MEDS: *HR* HYDROcodone/Acet 5/325 mg TABLET PO PRN ×2 (10:09→21:21)
--- NOTE | 2017-08-05 10:19 | Discharge Summary ---
Date of Encounter: 08/05/17 Time of Encounter: 10:16 - Discharge Diagnosis (1) S/P cardiac pacemaker procedure Priority: Primary Status: Acute Comments: Admitted after pacemaker. (2) Von Willebrand disease Priority: Secondary Status: Chronic Comments: Known Von Willebrands disease. Recieving humate infusions while inpatient. - Hospital Course Hospital course: Mr. Zepeda is a 66 year old male who was admitted after pacemaker insertion for sick sinus syndrome. Device check normal. Chest x-rays without evidence of pneumothorax. Patient has been inpatient for several days for humate infusions for von willebrands disease. No signs of bleeding noted. Hemoglobin has remained stable. Plan is for discharge home tomorrow after last humate infusion. Post device insertion education reviewed with patient. Patient will follow with [facility], follow up set. Patient educated to go to nearest ER for any signs of bleeding or blood loss. Patient and state understanding and agree with plan. All questions answered. - Time Spent with Patient Total time spent providing and/or coordinating discharge services: Less than 30 minutes - Discharge Medications Home Medications: Amlodipine Besylate 10 mg PO DAILY 05/27/17 [History] Aspirin [Lo-Dose Aspirin EC] 81 mg PO DAILY 05/27/17 [History] Budesonide/Formoterol 160/4.5 [Symbicort 160/4.5] 2 puff IH BIDR 05/27/17 [ History] Furosemide [Lasix] 40 mg PO BID 05/27/17 [History] Hydrocortisone [Proctozone-Hc] 30 gm RC BID PRN 05/27/17 [History] Lisinopril [Zestril] 20 mg PO DAILY 05/27/17 [History] Omeprazole [PriLOSEC] 20 mg PO DAILY 05/27/17 [History] Sertraline [Zoloft] 150 mg PO DAILY 05/27/17 [History] Trazodone HCl 200 mg PO HS 05/27/17 [History] Albuterol Sulfate [Proventil Hfa] 2 puff IH Q4-6H PRN 08/02/17 [History] Atorvastatin [Lipitor] 20 mg PO HS 08/02/17 [History] Guaifenesin 400 mg PO QID PRN 08/02/17 [History] HYDROcodone/Acet 5/325 mg [Brandon 5-325 mg] 1 tab PO Q8H PRN 08/02/17 [History] Mupirocin [Bactroban Oint] 22 gm TP DAILY PRN 08/02/17 [History] Triamcinolone Acet 0.1% CRM [Kenalog] 1 appl TP BID PRN 08/02/17 [History] Allergies/Adverse Reactions: 3 Allergy/AdvReac Type Severity Reaction Status Date / Time Penicillins Allergy Hives Verified 08/04/17 08:40 Date of admission: 08/03/17 15:16 [facility] care physician: [facility] Consults: 08/02/17 09:21 Consult to Oncology Hematology [CONS] Stat Consulting Provider: Mustapha Lozano Reason for Consult: Bleeding disorder Time Notified: 09:22 Call Completed: Yes Discharging clinician: Jhoana Lazaro Anticipated date of discharge: 08/06/17 Physical Examination Vital Signs, Last 4 Hours Temp Pulse Resp BP Pulse Ox 08/05/17 07:54 17 98 08/05/17 06:55 97.5 F L 60 16 144/79 97 General: Conversant, No Apparent Distress HEENT: Atraumatic, Normocephaly, Mucus Membranes Moist Neck: No JVD, Normal carotid pulses Cardiac: Reg Rate and Rhythm, Normal S1 and S2, No Murmur Lungs: Normal Breath Sounds, No Wheeze, Rales, Rhonchi Neuro: Alert and responsive, No focal deficits noted Abdomen: Soft, Non-Tender Skin: No rashes noted on visualized skin Musculoskeletal: No Chest Wall Tenderness, Other (Left chest wall steri-strips intact) Extremities: No Clubbing, No Cyanosis, No Edema, Normal Pulses - Patient Status Disposition: Home, Self-Care Condition: Good Functional capacity at discharge: independent ambulation Overall status at discharge: patient is progressing back to baseline - Discharge Instructions Follow Up With: [facility] [Primary Care Provider] - Additional Instructions: ACTIVITY: Moderate activity for the next 7 days. No lifting more than 5 pounds ( gallon of milk) for 4-6 weeks. Avoid lifting your arm on the same side as the device for 4 weeks. BATHING /SHOWERING: Do not remove the large bandage over the site for 2 days. Do not allow the device to get wet for 7-10 days. You may bathe/shower, but do not use soap and water on the site. When bathing, keep the site dry by covering with Saran wrap or a towel. WOUND CARE: The white steri-strips will start to peel away and come off after 14 days, or your doctor will remove them after [address] anything into or on top of the incision. Do not use cotton swabs. Do not use any antibiotic ointment or Vitamin E on the site. REMINDERS: You may use electrical devices, such as, microwaves, hair dryers, electric razors, electric blankets, etc. as long as they are in good condition and kept 6 -8 inches away from the device. It is recommended to use cell phones on the opposite side of your device. Notify security personnel at the airport that you have a device before you go through airport security screening. When at places with security monitors, such as a grocery store, do not linger near these monitors. It is fine to walk past them in a normal manner. Refer to your owners manual for more specific directions. CARRY YOUR PACEMAKER/ICD CARD WITH YOU AT ALL TIMES Return to work as instructed per physician Resume driving as instructed per physician Keep all scheduled follow up appointments Resume medications as instructed Contact [facility] ( ) if: You develop excessive bleeding from insertion or wound site not controlled by applying pressure You develop a fever greater than 101 degrees Fahrenheit Your incision becomes reddened at or around the site Your incision develops yellowish or greenish drainage or development of white pimple-like bumps You experience excessive pain You develop swelling in your ankles You experience muscle switching You develop excessive hiccupping If you experience chest pain, shortness of breath, dizziness, or extreme tiredness, stop the activity and rest. Please notify [facility] office if you experience any of these symptoms and they are not relieved by rest please call 911! - Diet and Activity Activity: increase activity as tolerated (Follow restrictions as listed above. ) Diet: advance to your usual diet - VTE Reasons for not Prescribing Prophylaxis: Medical contraindication
--- NOTE | 2017-08-05 18:29 | Oncology Inp Progress Note ---
Date of Encounter: 08/05/17 Time of Encounter: 16:00 (1) Von Willebrand disease Current Visit: No Status: Chronic Assessment and plan: He is doing well. He will receive his last dose of Humate-P tomorrow morning. He may be discharged after administration. He is scheduled for follow-up with me later in August. Please do not hesitate to call me on my cell phone at with any concerns or questions Oncology: Subj Interval history: Mr. Zepeda continues to do well. He is on his fourth day of Humate-P. He had no bleeding. He denies any symptoms of thrombosis. No lower extremity swelling or pain. He is ambulating. He does feel dizzy when he sits upright, however. No vertiginous symptoms. - Constitutional Vitals: Vital Signs Temp Pulse Resp BP Pulse Ox 08/05/17 16:30 97.5 F L 62 17 142/77 95 08/05/17 10:53 97.5 F L 60 16 151/88 97 08/05/17 07:54 17 98 08/05/17 06:55 97.5 F L 60 16 144/79 97 08/05/17 04:22 97.6 F 60 15 164/87 96 08/05/17 00:35 97.7 F 60 16 132/76 94 08/04/17 22:35 16 96 08/04/17 20:01 97.9 F 63 16 136/77 95 Intake and Output 08/05/17 08/05/17 08/06/17 08:59 16:59 00:59 Intake Total 360 / 360 240 / 240 240 / 240 Balance 360 / 360 240 / 240 240 / 240 Intake: Oral 360 / 360 240 / 240 240 / 240 Other: Meal Breakfast Lunch Dinner Percent of Meal Consumed 100% 100% 100% Stool Size Moderate Stool Consistency loose # Voids 1 # Bowel Movements 1 Weight 151.7 kg Patient Weight 08/06/17 00:59 Weight 151.7 kg General appearance: cooperative, no acute distress, obese - Head Head exam: Present: atraumatic, normal inspection, normocephalic - Eye Eye exam: Present: normal appearance, conjuntiva pink, sclera anicteric - ENT ENT exam: Present: normal external ear exam, normal oropharynx - Neck Neck exam: Present: full ROM, normal inspection - Respiratory Respiratory exam: Present: CTAB - Cardiovascular Cardiovascular exam: Present: RRR - GI/Abdominal GI/Abdominal exam: Present: normal bowel sounds, soft - Extremities Exam Extremities exam: Present: normal inspection, pedal edema - Neurological Exam Neurological exam: Present: alert, oriented X3, no focal deficits Oncology: Obj Data - Labs CBC & Chem 7: 08/05/17 08:25 08/05/17 08:25 Labs: Laboratory Results - last 24 hr 08/03/17 08/05/17 08/05/17 07:09 08:25 08:25 WBC 6.1 RBC 4.70 Hgb 13.4 Hct 39.5 MCV 84.0 MCH 28.5 MCHC 33.9 RDW 14.1 Plt Count 166 MPV 9.6 Factor VIII Activity 86 von Willebrand Activity 22 L von Willebrand Antigen 118 Sodium 140 Potassium 3.6 Chloride 103 Carbon Dioxide 36 H BUN 17 Creatinine 0.75 Est GFR ( Amer) > 60 Est GFR (Non-Af Amer) > 60 BUN/Creatinine Ratio 23 Glucose 128 H Calculated Osmolality 293 Calcium 9.2 Consult Discharge Plan - Plan Additional Instructions: ACTIVITY: Moderate activity for the next 7 days. No lifting more than 5 pounds ( gallon of milk) for 4-6 weeks. Avoid lifting your arm on the same side as the device for 4 weeks. BATHING /SHOWERING: Do not remove the large bandage over the site for 2 days. Do not allow the device to get wet for 7-10 days. You may bathe/shower, but do not use soap and water on the site. When bathing, keep the site dry by covering with Saran wrap or a towel. WOUND CARE: The white steri-strips will start to peel away and come off after 14 days, or your doctor will remove them after [address] anything into or on top of the incision. Do not use cotton swabs. Do not use any antibiotic ointment or Vitamin E on the site. REMINDERS: You may use electrical devices, such as, microwaves, hair dryers, electric razors, electric blankets, etc. as long as they are in good condition and kept 6 -8 inches away from the device. It is recommended to use cell phones on the opposite side of your device. Notify security personnel at the airport that you have a device before you go through airport security screening. When at places with security monitors, such as a grocery store, do not linger near these monitors. It is fine to walk past them in a normal manner. Refer to your owners manual for more specific directions. CARRY YOUR PACEMAKER/ICD CARD WITH YOU AT ALL TIMES Return to work as instructed per physician Resume driving as instructed per physician Keep all scheduled follow up appointments Resume medications as instructed Contact [facility] ( ) if: You develop excessive bleeding from insertion or wound site not controlled by applying pressure You develop a fever greater than 101 degrees Fahrenheit Your incision becomes reddened at or around the site Your incision develops yellowish or greenish drainage or development of white pimple-like bumps You experience excessive pain You develop swelling in your ankles You experience muscle switching You develop excessive hiccupping If you experience chest pain, shortness of breath, dizziness, or extreme tiredness, stop the activity and rest. Please notify [facility] office if you experience any of these symptoms and they are not relieved by rest please call 911! [facility]errals: [facility] [Primary Care Provider] - 08/11/17 10:45 am (Please follow up as schedule...)
[2017-08-05] MEDS: traZODone 50 MG TABLET PO SCH (21:20)
[2017-08-06] MEDS ORDERED: WATER FOR INJ IVPB ONE (09:00)
[2017-08-06] MEDS ORDERED: [UNRECOGNIZED DRUG - OTHER] IVPB ONE (09:00)
[2017-08-06] MEDS ORDERED: VWF IVPB ONE (09:00)
[2017-08-06] MEDS ORDERED: ANTIHEMOPHILIC FACTOR IVPB ONE (09:00)
[2017-08-06] MEDS: Budesonide/Formoterol 160/4.5 MDI IH SCH (09:16)
[2017-08-06] MEDS: Furosemide 40 MG TABLET PO SCH (09:50)
[2017-08-06] MEDS: Aspirin Enteric Coated 81 MG Tablet PO SCH (09:50)
[2017-08-06] MEDS: Lisinopril 20 MG TABLET PO SCH (09:51)
[2017-08-06] MEDS: amLODIPine 5 MG TABLET PO SCH (09:51)
[2017-08-06] MEDS: 0.9 % Sodium Chloride 1,000 ML IVC SCH (09:58)
--- NOTE | 2017-08-06 10:26 | Event Note ---
Date of Encounter: 08/06/17 Time of Encounter: 10:24 - Cardiology Event Note Plan was initially for d/c today after last Humate infusion. Pt developed BLE pain and numbness, described as similar to prior DVT symptoms. STAT BLE venous dopplers ordered to r/o DVT. Hospitalist consulted as well for leg pain and numbness. Discharge currently on hold. Pt hesitant to have his last Humate infusion. Hematology aware. They state he has already had 4 and if he declines, should not be a high risk. Continue to manage and re-evaluate later today.
--- NOTE | 2017-08-06 10:48 | Oncology Inp Progress Note ---
Date of Encounter: 08/06/17 Time of Encounter: 10:45 (1) Von Willebrand disease Current Visit: No Status: Chronic Assessment and plan: He is doing well. He may forego his treatment today; he has completed 4 doses of therapy to date. Agree with duplex doppler to the leg. If negative, he may d/c home. If positive for DVT, would place him on Eliquis 5 mg bid. Please do not hesitate to call me on my cell phone at [phone] with any concerns or questions Oncology: Subj Interval history: Developed a "tingling" and "pulling" sensation from hip to left calf overnight. Refused humate p as similar sensation to prior DVT after open heart surgery at [facility] [place]. Prominent varicose veins present but stable. No redness or new swelling. Otherwise feels well without bleeding symptomatology. - Constitutional Vitals: Vital Signs Temp Pulse Resp BP Pulse Ox 08/06/17 09:16 16 98 08/06/17 08:25 97.9 F 60 14 160/88 96 08/06/17 07:43 97.5 F L 63 19 152/88 100 08/06/17 04:17 97.6 F 59 16 125/80 98 08/05/17 23:39 97.8 F 60 16 127/74 95 08/05/17 22:26 16 98 08/05/17 19:52 97.9 F 61 17 129/70 98 08/05/17 16:30 97.5 F L 62 17 142/77 95 08/05/17 10:53 97.5 F L 60 16 151/88 97 Intake and Output 08/06/17 08/06/17 08/06/17 00:59 08:59 16:59 Intake Total 240 / 240 480 / 480 Balance 240 / 240 480 / 480 Intake: Oral 240 / 240 480 / 480 Other: Meal Dinner Breakfast Percent of Meal Consumed 100% 100% # Voids 1 1 Weight 151.5 kg Patient Weight 08/07/17 00:59 Weight 151.5 kg General appearance: morbidly obese, no acute distress - Head Head exam: Present: atraumatic, normal inspection, normocephalic - Eye Eye exam: Present: normal appearance, conjuntiva pink, sclera anicteric - ENT ENT exam: Present: mucous membranes moist, normal oropharynx - Neck Neck exam: Present: full ROM, normal inspection - Respiratory Respiratory exam: Present: CTAB - Cardiovascular Cardiovascular exam: Present: RRR - GI/Abdominal GI/Abdominal exam: Present: normal bowel sounds, soft - Extremities Exam Extremities exam: Present: normal inspection, pedal edema Additional comments: Extensive varicosities bilaterally - Neurological Exam Neurological exam: Present: alert, CN II-XII intact, oriented X3, no focal deficits - Skin Skin exam: Present: normal color Oncology: Obj Data - Labs CBC & Chem 7: 08/05/17 08:25 08/05/17 08:25 Consult Discharge Plan - Plan Instructions: Pacemaker (DC), Congenital von Willebrand Disease (DC) Additional Instructions: ACTIVITY: Moderate activity for the next 7 days. No lifting more than 5 pounds ( gallon of milk) for 4-6 weeks. Avoid lifting your arm on the same side as the device for 4 weeks. BATHING /SHOWERING: Do not remove the large bandage over the site for 2 days. Do not allow the device to get wet for 7-10 days. You may bathe/shower, but do not use soap and water on the site. When bathing, keep the site dry by covering with Saran wrap or a towel. WOUND CARE: The white steri-strips will start to peel away and come off after 14 days, or your doctor will remove them after [address] anything into or on top of the incision. Do not use cotton swabs. Do not use any antibiotic ointment or Vitamin E on the site. REMINDERS: You may use electrical devices, such as, microwaves, hair dryers, electric razors, electric blankets, etc. as long as they are in good condition and kept 6 -8 inches away from the device. It is recommended to use cell phones on the opposite side of your device. Notify security personnel at the airport that you have a device before you go through airport security screening. When at places with security monitors, such as a grocery store, do not linger near these monitors. It is fine to walk past them in a normal manner. Refer to your owners manual for more specific directions. CARRY YOUR PACEMAKER/ICD CARD WITH YOU AT ALL TIMES Return to work as instructed per physician Resume driving as instructed per physician Keep all scheduled follow up appointments Resume medications as instructed Contact [facility] ( ) if: You develop excessive bleeding from insertion or wound site not controlled by applying pressure You develop a fever greater than 101 degrees Fahrenheit Your incision becomes reddened at or around the site Your incision develops yellowish or greenish drainage or development of white pimple-like bumps You experience excessive pain You develop swelling in your ankles You experience muscle switching You develop excessive hiccupping If you experience chest pain, shortness of breath, dizziness, or extreme tiredness, stop the activity and rest. Please notify [facility] office if you experience any of these symptoms and they are not relieved by rest please call 911! [facility]errals: [facility] [Primary Care Provider] - 08/11/17 10:45 am (Please follow up as schedule...)
[2017-08-06 10:57] VITALS: BP 143/80
--- NOTE | 2017-08-06 13:34 | Event Note ---
Date of Encounter: 08/06/17 Time of Encounter: 13:30 - Cardiology Event Note Preliminary dopplers negative for DVT. Seen and assessed by Dr. Lozano. Gregorio with not giving today's planned Humate infusion. Also seen and assessed by hospitalist Dr. Kothari, no neurological concerns for CVA. No further testing warranted. Pt was able to stand and ambulate. Hospitalist and Hematology both okay with d/c today. D/C home in stable condition. Outpt follow-up already coordinated.
--- NOTE | 2017-08-06 18:21 | Internal Medicine Consult Note ---
Date of Encounter: 08/06/17 Time of Encounter: 11:00 - Assessment and plan (1) Sensation disturbance of skin Status: Acute Assessment and plan: Patient reports that symptoms usually brought on by humate infusion Hematology oncology with recommendations to not give final dose (2) Pain of left calf Status: Acute Assessment and plan: Bilateral lateral lower extremity venous Dopplers negative for DVT No further workup needed (3) S/P cardiac pacemaker procedure Status: Acute Assessment and plan: Per cardiology (4) Von Willebrand disease Status: Chronic Assessment and plan: Per hematology oncology - Time Spent With Patient Total time spent is greater than 50% in coordination of care (as documented) at patient's floor/unit and/or counseling patient: Internal Medicine - CN: HPI - Data of Consult Requesting Physician: Kentrell Molina, - Consult Narrative History of present illness: Patient is a 66-year-old male with past medical history significant for von Willebrands disease, hypertension, GERD, hyperlipidemia and sick sinus syndrome status post pacemaker who complained of right and left lateral thigh altered sensation. Patient reported that the symptoms have been chronic but usually are made worse after treatments of Humate infusion. Patient describes right lateral altered sensation from right hip to right knee in addition to left altered sensation from left hip to left knee. Since these issues have been chronic, patient states he is mainly concerned about DVTs in his lower extremity due to calf tenderness and prior history of DVTs. Past Med Surg Social Fam HX - Past Medical History Medical history: COPD, diabetes, hypertension, valvular heart disease, other Psychiatric history: anxiety, depression, PTSD - Past Surgical History Surgical History: pacemaker/AICD - Social History Smoking Status: Former smoker Smokeless Tobacco Status: No Alcohol use: none Drug use: none All systems: reviewed and no additional remarkable complaints except as stated ( Left calf pain) Internal Medicine - CN: Meds Amlodipine Besylate 10 mg PO DAILY 05/27/17 [History] Aspirin [Lo-Dose Aspirin EC] 81 mg PO DAILY 05/27/17 [History] Budesonide/Formoterol 160/4.5 [Symbicort 160/4.5] 2 puff IH BIDR 05/27/17 [ History] Furosemide [Lasix] 40 mg PO BID 05/27/17 [History] Hydrocortisone [Proctozone-Hc] 30 gm RC BID PRN 05/27/17 [History] Lisinopril [Zestril] 20 mg PO DAILY 05/27/17 [History] Omeprazole [PriLOSEC] 20 mg PO DAILY 05/27/17 [History] Sertraline [Zoloft] 150 mg PO DAILY 05/27/17 [History] Trazodone HCl 200 mg PO HS 05/27/17 [History] Albuterol Sulfate [Proventil Hfa] 2 puff IH Q4-6H PRN 08/02/17 [History] Atorvastatin [Lipitor] 20 mg PO HS 08/02/17 [History] Guaifenesin 400 mg PO QID PRN 08/02/17 [History] HYDROcodone/Acet 5/325 mg [Pilot 5-325 mg] 1 tab PO Q8H PRN 08/02/17 [History] Mupirocin [Bactroban Oint] 22 gm TP DAILY PRN 08/02/17 [History] Triamcinolone Acet 0.1% CRM [Kenalog] 1 appl TP BID PRN 08/02/17 [History] 3 Allergy/AdvReac Type Severity Reaction Status Date / Time Penicillins Allergy Hives Verified 08/04/17 08:40 Internal Medicine - CN: Exam - Constitutional Vitals: Temp Pulse Resp BP Pulse Ox 97.7 F 64 20 143/80 98 08/06/17 10:54 08/06/17 10:54 08/06/17 10:54 08/06/17 10:54 08/06/17 10:54 General appearance IM: Present: A&O X 3, no acute distress - Eye Eye exam: Present: normal appearance - ENT ENT exam: Present: mucous membranes moist - Respiratory Respiratory exam: Present: CTAB. Absent: respiratory distress, wheezes - Cardiovascular Cardiovascular exam IM: Present: RRR - GI/Abdominal GI/Abdominal exam IM: Present: soft. Absent: distended, tenderness - Extremities Exam Extremities exam IM: Present: calf tenderness - Expanded Upper Extremities Exam Upper Arm exam: Present: full ROM - Expanded Lower Extremities Exam Upper Leg exam: Present: full ROM. Absent: tenderness Lower Leg exam: Present: tenderness - Neurological Exam Neurological exam: Present: CN II-XII intact, oriented X3. Absent: abnormal gait, motor sensory deficit, speech deficit - Expanded Neurological Exam Neurological exam expanded: Absent: expressive aphasia Speech: Absent: slurred Cranial Nerves: EOM's intact PM: Normal, tongue deviation PM: Normal Sensory exam: lower extremity light touch: Normal, upper extremity light touch: Normal - Psychiatric Psychiatric exam: Present: normal mood - Skin Skin exam IM: Present: normal color Internal Medicine - CN: Reslt - Labs CBC & Chem 7: 08/05/17 08:25 08/05/17 08:25 Consult Discharge Plan - Plan Instructions: Pacemaker (DC), Congenital von Willebrand Disease (DC) Additional Instructions: ACTIVITY: Moderate activity for the next 7 days. No lifting more than 5 pounds ( gallon of milk) for 4-6 weeks. Avoid lifting your arm on the same side as the device for 4 weeks. BATHING /SHOWERING: Do not remove the large bandage over the site for 2 days. Do not allow the device to get wet for 7-10 days. You may bathe/shower, but do not use soap and water on the site. When bathing, keep the site dry by covering with Saran wrap or a towel. WOUND CARE: The white steri-strips will start to peel away and come off after 14 days, or your doctor will remove them after [address] into or on top of the incision. Do not use cotton swabs. Do not use any antibiotic ointment or Vitamin E on the site. REMINDERS: You may use electrical devices, such as, microwaves, hair dryers, electric razors, electric blankets, etc. as long as they are in good condition and kept 6 -8 inches away from the device. It is recommended to use cell phones on the opposite side of your device. Notify security personnel at the airport that you have a device before you go through airport security screening. When at places with security monitors, such as a grocery store, do not linger near these monitors. It is fine to walk past them in a normal manner. Refer to your owners manual for more specific directions. CARRY YOUR PACEMAKER/ICD CARD WITH YOU AT ALL TIMES Return to work as instructed per physician Resume driving as instructed per physician Keep all scheduled follow up appointments Resume medications as instructed Contact [facility] ( ) if: You develop excessive bleeding from insertion or wound site not controlled by applying pressure You develop a fever greater than 101 degrees Fahrenheit Your incision becomes reddened at or around the site Your incision develops yellowish or greenish drainage or development of white pimple-like bumps You experience excessive pain You develop swelling in your ankles You experience muscle switching You develop excessive hiccupping If you experience chest pain, shortness of breath, dizziness, or extreme tiredness, stop the activity and rest. Please notify [facility] office if you experience any of these symptoms and they are not relieved by rest please call 911! [facility]errals[facility] Care Provider[facility] - 08/11/17 10:45 am (Please follow up as schedule...)
== END 2017-08-06 14:27 | disposition home or self-care (01) | DRG 243 ==
LOC: INVDIALAB 08:38 → 2ANU 14:44
PROVIDERS: ADMIT Internal Medicine Clinical Cardiac Electrophysiology; ATTEND Internal Medicine Clinical Cardiac Electrophysiology

== ENCOUNTER 2021-04-22 10:26 | Inpatient (IN) ==
[2021-04-22] MEDS ORDERED: Naloxone 0.4 MG/ML INJ IVP PRN (14:23)
[2021-04-22] MEDS ORDERED: Ondansetron 4 MG/2 ML VIAL IVP PRN (14:29)
[2021-04-22] MEDS ORDERED: Remdesivir 200 MG in 0.9 % Sodium Chloride 100 ML IVPB ONE (16:00)
[2021-04-22] MEDS: Furosemide 40 MG/4 ML VIAL IVP SCH (16:33)
[2021-04-22] MEDS: *HR* LORazepam 2 MG/ML VIAL IVP PRN (23:55)
[2021-04-23 05:33] LABS: Hemoglobin 14.3 g/dL (12.9-16.9); Mean Corpuscular Volume 81.4 fL (83.0-100.0)
[2021-04-23 05:35] LABS: Basophils # 0.1 K/mcL (0.0-0.2); Basophils % 0.8 %; Hematocrit 42.9 % (37.5-50.1); Immature Granulocytes % 3.2 % (0-4); Immature Platelets 2.6 % (1.1-6.1); Lymphocytes # 0.8 K/mcL (0.6-4.6); Lymphocytes % 7.9 %; Mean Corpuscular HGB Conc 33.3 g/dL (31.6-35.5); Mean Corpuscular Hemoglobin 27.1 pg (28.0-33.3); Mean Platelet Volume 8.8 fL (9.4-12.4); Monocytes # 0.5 K/mcL (0.0-1.3); Monocytes % 4.6 %; Neutrophils # 8.4 K/mcL (1.6-8.9); Nucleated Red Blood Cells 0.4 /100 WBC (0); Platelet Count 250 K/mcL (140-400); Red Blood Count 5.27 M/mcL (4.19-5.50); Red Cell Distribution Width 14.4 % (11.5-14.5); Segmented Neutrophils % 83.5 %
[2021-04-23] MEDS: Benzonatate 100 MG CAPSULE PO PRN (05:52)
[2021-04-23] MEDS: *HR* LORazepam 2 MG/ML VIAL IVP PRN (05:52)
[2021-04-23] MEDS ORDERED: *HR* Enoxaparin 40 MG/0.4 ML SYRINGE SQ SCH (06:00)
[2021-04-23 06:13] LABS: Alanine Aminotransferase 26 Units/L (7-52); Albumin 3.8 g/dL (3.5-5.7); Albumin/Globulin Ratio 1.1 (1.1-2.2); Alkaline Phosphatase 84 Units/L (34-104); Aspartate Amino Transferase 54 Units/L (13-39); BUN/Creatinine Ratio 32 (6-26); Bilirubin,Direct 0.5 mg/dL (0.0-0.2); Bilirubin,Indirect 0.7 mg/dL (0.0-1.0); Bilirubin,Total 1.2 mg/dL (0.3-1.0); Blood Urea Nitrogen 30 mg/dL (8-23); Calcium 8.6 mg/dL (8.6-10.3); Carbon Dioxide 20 mEq/L (23-29); Chloride 102 mEq/L (98-107); Globulin 3.5 g/dL (2.4-3.5); Glucose 100 mg/dL (70-105); Magnesium 2.5 mg/dL (1.6-2.6); Osmolality,Calculated 294 (280-300); Potassium 3.7 mEq/L (3.5-5.1); Sodium 139 mEq/L (136-145); Total Protein 7.3 g/dL (6.4-8.9); Troponin I 0.03 ng/mL (< 0.04); eGFR For African Americans > 60 (> 60); eGFR For Non-African Americans > 60 (> 60)
[2021-04-23] MEDS: Furosemide 40 MG/4 ML VIAL IVP SCH ×2 (07:45→17:33)
[2021-04-23 10:48] LABS: C-Reactive Protein 161 mg/L (Less than 10)
[2021-04-23] MEDS: Remdesivir 100 MG in 0.9 % Sodium Chloride 100 ML IVPB SCH (16:00)
[2021-04-23] MEDS ORDERED: Artificial Tears SOLN 15 ML BOTTLE BOTH EYES PRN (16:42)
[2021-04-23] MEDS ORDERED: Heparin 25,000UNIT/250ML 1/2NS 25,000 UNIT/250 ML IV.SOLN IVC SCH (22:15)
[2021-04-23] MEDS ORDERED: Dextrose Gel 15 GM/37.5 ML TUBE PO PRN ×2 (23:03)
[2021-04-23] MEDS ORDERED: D5% in Water 1,000 ML IVC PRN (23:03)
[2021-04-23 23:45] LABS: Hematocrit 42.9 % (37.5-50.1); Hemoglobin 14.5 g/dL (12.9-16.9); Mean Corpuscular HGB Conc 33.8 g/dL (31.6-35.5); Mean Corpuscular Hemoglobin 27.5 pg (28.0-33.3); Mean Corpuscular Volume 81.3 fL (83.0-100.0); Platelet Count 246 K/mcL (140-400); Red Blood Count 5.28 M/mcL (4.19-5.50); Red Cell Distribution Width 14.5 % (11.5-14.5); White Blood Count 9.5 K/mcL (4.3-11.1)
[2021-04-23 23:51] LABS: Heparin anti-factor XA UFH < 0.04 IU/mL (0.30-0.70); INR 1.1; Prothrombin Time 12.3 Seconds (9.4-12.1)
[2021-04-24] MEDS ORDERED: Insulin LISPRO 300 UNITS/3 ML VIAL SUBQ SCH
[2021-04-24 05:56] LABS: Basophils # 0.1 K/mcL (0.0-0.2); Basophils % 0.5 %; Hematocrit 42.8 % (37.5-50.1); Hemoglobin 14.5 g/dL (12.9-16.9); Immature Granulocytes % 5.1 % (0-4); Lymphocytes # 1.1 K/mcL (0.6-4.6); Lymphocytes % 10.7 %; Mean Corpuscular HGB Conc 33.9 g/dL (31.6-35.5); Mean Corpuscular Hemoglobin 27.6 pg (28.0-33.3); Mean Corpuscular Volume 81.4 fL (83.0-100.0); Mean Platelet Volume 9.1 fL (9.4-12.4); Monocytes # 0.6 K/mcL (0.0-1.3); Monocytes % 6.4 %; Neutrophils # 7.7 K/mcL (1.6-8.9); Nucleated Red Blood Cells 0.2 /100 WBC (0); Platelet Count 249 K/mcL (140-400); Red Blood Count 5.26 M/mcL (4.19-5.50); Red Cell Distribution Width 14.6 % (11.5-14.5); Segmented Neutrophils % 77.3 %
[2021-04-24 06:16] LABS: Alanine Aminotransferase 27 Units/L (7-52); Albumin 3.6 g/dL (3.5-5.7); Alkaline Phosphatase 90 Units/L (34-104); Aspartate Amino Transferase 38 Units/L (13-39); BUN/Creatinine Ratio 41 (6-26); Bilirubin,Direct 0.5 mg/dL (0.0-0.2); Bilirubin,Indirect 0.6 mg/dL (0.0-1.0); Bilirubin,Total 1.1 mg/dL (0.3-1.0); Blood Urea Nitrogen 42 mg/dL (8-23); Carbon Dioxide 30 mEq/L (23-29); Chloride 102 mEq/L (98-107); Globulin 3.7 g/dL (2.4-3.5); Glucose 131 mg/dL (70-105); Osmolality,Calculated 302 (280-300); Sodium 140 mEq/L (136-145); Total Protein 7.3 g/dL (6.4-8.9); eGFR For African Americans > 60 (> 60); eGFR For Non-African Americans > 60 (> 60)
[2021-04-24] MEDS ORDERED: Isovue-370 500 ML BOTTLE IVP ONE (07:37)
[2021-04-24] MEDS: Furosemide 40 MG/4 ML VIAL IVP SCH ×2 (09:16→17:21)
[2021-04-24] MEDS ORDERED: *HR* Heparin 5,000 UNIT/ML VIAL IVP PRN ×2 (10:15)
[2021-04-24] MEDS: Heparin 25,000UNIT/250ML 1/2NS 25,000 UNIT/250 ML IV.SOLN IVC SCH ×2 (10:24→15:13)
[2021-04-24 11:14] LABS: Hematocrit 42.6 % (37.5-50.1); Hemoglobin 14.3 g/dL (12.9-16.9); Mean Corpuscular HGB Conc 33.6 g/dL (31.6-35.5); Mean Corpuscular Hemoglobin 27.1 pg (28.0-33.3); Mean Corpuscular Volume 80.8 fL (83.0-100.0); Mean Platelet Volume 8.9 fL (9.4-12.4); Platelet Count 252 K/mcL (140-400); Red Blood Count 5.27 M/mcL (4.19-5.50); Red Cell Distribution Width 14.6 % (11.5-14.5); White Blood Count 10.4 K/mcL (4.3-11.1)
[2021-04-24 11:49] LABS: Heparin anti-factor XA UFH 0.08 IU/mL (0.30-0.70); INR 1.2; Prothrombin Time 13.6 Seconds (9.4-12.1)
[2021-04-24] MEDS ORDERED: *HR* HYDROcodone/Acet 5/325 mg TABLET PO PRN (15:45)
[2021-04-24] MEDS ORDERED: *HR* OxyCODONE Immed Rel 5 MG TABLET PO PRN (15:45)
[2021-04-24] MEDS: Remdesivir 100 MG in 0.9 % Sodium Chloride 100 ML IVPB SCH (18:41)
[2021-04-24] MEDS: Budesonide/Formoterol 80/4.5 1 PUFF INH IH SCH (20:31)
[2021-04-24 21:11] LABS: Hematocrit 43.7 % (37.5-50.1); Hemoglobin 14.6 g/dL (12.9-16.9)
[2021-04-24] MEDS: traZODone 50 MG TABLET PO SCH (21:41)
[2021-04-24] MEDS: lamoTRIgine 100 MG TABLET PO SCH (21:42)
[2021-04-25 04:05] LABS: Basophils # 0.1 K/mcL (0.0-0.2); Basophils % 0.5 %; Hematocrit 41.5 % (37.5-50.1); Immature Granulocytes % 4.4 % (0-4); Lymphocytes # 1.4 K/mcL (0.6-4.6); Lymphocytes % 9.8 %; Mean Corpuscular HGB Conc 33.7 g/dL (31.6-35.5); Mean Corpuscular Hemoglobin 27.8 pg (28.0-33.3); Mean Corpuscular Volume 82.3 fL (83.0-100.0); Monocytes # 0.8 K/mcL (0.0-1.3); Monocytes % 5.6 %; Neutrophils # 11.7 K/mcL (1.6-8.9); Platelet Count 293 K/mcL (140-400); Red Blood Count 5.04 M/mcL (4.19-5.50); Red Cell Distribution Width 14.6 % (11.5-14.5); Segmented Neutrophils % 79.7 %; White Blood Count 14.6 K/mcL (4.3-11.1)
[2021-04-25 04:18] LABS: Alanine Aminotransferase 28 Units/L (7-52); Albumin 3.5 g/dL (3.5-5.7); Albumin/Globulin Ratio 1.1 (1.1-2.2); Alkaline Phosphatase 90 Units/L (34-104); Aspartate Amino Transferase 43 Units/L (13-39); BUN/Creatinine Ratio 51 (6-26); Bilirubin,Direct 0.3 mg/dL (0.0-0.2); Bilirubin,Indirect 0.6 mg/dL (0.0-1.0); Bilirubin,Total 0.9 mg/dL (0.3-1.0); Blood Urea Nitrogen 54 mg/dL (8-23); Calcium 8.6 mg/dL (8.6-10.3); Carbon Dioxide 31 mEq/L (23-29); Chloride 105 mEq/L (98-107); Globulin 3.2 g/dL (2.4-3.5); Glucose 130 mg/dL (70-105); Osmolality,Calculated 311 (280-300); Sodium 142 mEq/L (136-145); Total Protein 6.7 g/dL (6.4-8.9); eGFR For African Americans > 60 (> 60); eGFR For Non-African Americans > 60 (> 60)
[2021-04-25] MEDS: Heparin 25,000UNIT/250ML 1/2NS 25,000 UNIT/250 ML IV.SOLN IVC SCH ×2 (04:41→20:27)
[2021-04-25] MEDS: Budesonide/Formoterol 80/4.5 1 PUFF INH IH SCH ×2 (07:34→21:32)
[2021-04-25] MEDS: Furosemide 40 MG/4 ML VIAL IVP SCH ×2 (08:54→16:41)
[2021-04-25] MEDS: amLODIPine 5 MG TABLET PO SCH (08:54)
[2021-04-25] MEDS: lisinopriL 20 MG TABLET PO SCH (08:55)
[2021-04-25] MEDS: Remdesivir 100 MG in 0.9 % Sodium Chloride 100 ML IVPB SCH (16:45)
[2021-04-25] MEDS: *HR* LORazepam 2 MG/ML VIAL IVP PRN (19:54)
[2021-04-25] MEDS: traZODone 50 MG TABLET PO SCH (20:27)
[2021-04-25] MEDS: lamoTRIgine 100 MG TABLET PO SCH (20:27)
[2021-04-25] MEDS ORDERED: Haloperidol Lactate 5 MG/ML VIAL IVP ONE (22:51)
[2021-04-25] MEDS: Melatonin 3 MG TABLET PO SCH (23:08)
[2021-04-26] MEDS ORDERED: Ziprasidone 5 MG, Closed System Device IM Kit 1 EACH in Water for inj. (sterile) 0.5 ML IM ONE (01:52)
[2021-04-26] MEDS ORDERED: Dexmedetomidine HCl 400 MCG/100 ML MLS IVC ONE (05:03)
[2021-04-26] MEDS: Dexmedetomidine HCl 400 MCG/100 ML MLS IVC SCH ×4 (05:10→19:57)
[2021-04-26 05:54] LABS: Hematocrit 36.1 % (37.5-50.1); Mean Corpuscular HGB Conc 34.1 g/dL (31.6-35.5); Mean Platelet Volume 9.1 fL (9.4-12.4); Platelet Count 250 K/mcL (140-400); Red Cell Distribution Width 14.5 % (11.5-14.5); White Blood Count 12.7 K/mcL (4.3-11.1)
[2021-04-26 06:00] LABS: Hemoglobin 12.3 g/dL (12.9-16.9)
[2021-04-26 06:16] LABS: Alanine Aminotransferase 29 Units/L (7-52); Albumin 2.9 g/dL (3.5-5.7); Albumin/Globulin Ratio 1.1 (1.1-2.2); Alkaline Phosphatase 87 Units/L (34-104); Aspartate Amino Transferase 49 Units/L (13-39); BUN/Creatinine Ratio 53 (6-26); Bilirubin,Direct 0.3 mg/dL (0.0-0.2); Bilirubin,Indirect 0.6 mg/dL (0.0-1.0); Bilirubin,Total 0.9 mg/dL (0.3-1.0); Blood Urea Nitrogen 60 mg/dL (8-23); Calcium 7.1 mg/dL (8.6-10.3); Carbon Dioxide 25 mEq/L (23-29); Chloride 93 mEq/L (98-107); Globulin 2.6 g/dL (2.4-3.5); Glucose 361 mg/dL (70-105); Osmolality,Calculated 295 (280-300); Potassium 3.2 mEq/L (3.5-5.1); Sodium 127 mEq/L (136-145); Total Protein 5.5 g/dL (6.4-8.9); eGFR For African Americans > 60 (> 60); eGFR For Non-African Americans > 60 (> 60)
[2021-04-26 07:50] LABS: Lymphocytes # 0.8 K/mcL (0.6-4.6); Monocytes # 0.5 K/mcL (0.0-1.3); Neutrophils # 11.4 K/mcL (1.6-8.9)
[2021-04-26 07:51] LABS: Platelet Estimate Normal (Normal)
[2021-04-26] MEDS: Budesonide/Formoterol 80/4.5 1 PUFF INH IH SCH ×2 (08:54→19:56)
[2021-04-26] MEDS: Furosemide 40 MG/4 ML VIAL IVP SCH ×2 (08:58→17:28)
[2021-04-26] MEDS: Heparin 25,000UNIT/250ML 1/2NS 25,000 UNIT/250 ML IV.SOLN IVC SCH ×2 (09:00→21:40)
[2021-04-26] MEDS: amLODIPine 5 MG TABLET PO SCH (09:00)
[2021-04-26] MEDS: lisinopriL 20 MG TABLET PO SCH (09:00)
[2021-04-26] MEDS: Remdesivir 100 MG in 0.9 % Sodium Chloride 100 ML IVPB SCH (17:28)
[2021-04-26] MEDS: lamoTRIgine 100 MG TABLET PO SCH (19:57)
[2021-04-26] MEDS: Melatonin 3 MG TABLET PO SCH (19:58)
[2021-04-26] MEDS: traZODone 50 MG TABLET PO SCH (20:00)
[2021-04-26] MEDS: *HR* LORazepam 2 MG/ML VIAL IVP PRN (21:50)
[2021-04-27] MEDS: Dexmedetomidine HCl 400 MCG/100 ML MLS IVC SCH (00:31)
[2021-04-27] MEDS: Budesonide/Formoterol 80/4.5 1 PUFF INH IH SCH ×2 (08:10→21:13)
[2021-04-27] MEDS: lisinopriL 20 MG TABLET PO SCH (08:36)
[2021-04-27] MEDS: amLODIPine 5 MG TABLET PO SCH (08:36)
[2021-04-27] MEDS: *HR* HYDROmorphone (PF) 1 MG/ML SYRINGE IVP PRN (08:36)
[2021-04-27] MEDS: Furosemide 40 MG/4 ML VIAL IVP SCH ×2 (08:36→17:31)
[2021-04-27 09:12] LABS: Hematocrit 44.5 % (37.5-50.1); Mean Corpuscular HGB Conc 34.2 g/dL (31.6-35.5); Mean Corpuscular Hemoglobin 27.7 pg (28.0-33.3); Mean Corpuscular Volume 81.1 fL (83.0-100.0); Mean Platelet Volume 9.2 fL (9.4-12.4); Nucleated Red Blood Cells 0.1 /100 WBC (0); Platelet Count 283 K/mcL (140-400); Red Blood Count 5.49 M/mcL (4.19-5.50); Red Cell Distribution Width 14.2 % (11.5-14.5); White Blood Count 15.8 K/mcL (4.3-11.1)
[2021-04-27 09:35] LABS: Hemoglobin 15.2 g/dL (12.9-16.9)
[2021-04-27 14:40] LABS: Eosinophils # 0.2 K/mcL (0.0-0.6); Lymphocytes # 0.6 K/mcL (0.6-4.6); Monocytes # 0.6 K/mcL (0.0-1.3); Neutrophils # 13.8 K/mcL (1.6-8.9)
[2021-04-27 14:42] LABS: Platelet Estimate Normal (Normal)
[2021-04-27 16:23] LABS: Albumin 3.3 g/dL (3.5-5.7); Albumin/Globulin Ratio 1.1 (1.1-2.2); Bilirubin,Direct 0.4 mg/dL (0.0-0.2); Bilirubin,Indirect 0.5 mg/dL (0.0-1.0); Bilirubin,Total 0.9 mg/dL (0.3-1.0); Calcium 8.1 mg/dL (8.6-10.3); Globulin 2.9 g/dL (2.4-3.5); Potassium 4.5 mEq/L (3.5-5.1); Total Protein 6.2 g/dL (6.4-8.9)
[2021-04-27] MEDS: Heparin 25,000UNIT/250ML 1/2NS 25,000 UNIT/250 ML IV.SOLN IVC SCH ×2 (18:09→23:12)
[2021-04-27] MEDS: traZODone 50 MG TABLET PO SCH (21:35)
[2021-04-27] MEDS: Melatonin 3 MG TABLET PO SCH (21:36)
[2021-04-27] MEDS: lamoTRIgine 100 MG TABLET PO SCH (21:36)
[2021-04-28 06:42] LABS: Hematocrit 42.7 % (37.5-50.1); Hemoglobin 14.2 g/dL (12.9-16.9); Mean Corpuscular HGB Conc 33.3 g/dL (31.6-35.5); Mean Corpuscular Hemoglobin 27.2 pg (28.0-33.3); Mean Corpuscular Volume 81.8 fL (83.0-100.0); Mean Platelet Volume 9.4 fL (9.4-12.4); Nucleated Red Blood Cells 0.3 /100 WBC (0); Platelet Count 278 K/mcL (140-400); Red Blood Count 5.22 M/mcL (4.19-5.50); Red Cell Distribution Width 14.6 % (11.5-14.5); White Blood Count 18.2 K/mcL (4.3-11.1)
[2021-04-28 07:16] LABS: BUN/Creatinine Ratio 62 (6-26); Blood Urea Nitrogen 81 mg/dL (8-23); Calcium 8.1 mg/dL (8.6-10.3); Carbon Dioxide 26 mEq/L (23-29); Chloride 98 mEq/L (98-107); Glucose 102 mg/dL (70-105); Osmolality,Calculated 303 (280-300); Sodium 134 mEq/L (136-145); eGFR For African Americans > 60 (> 60); eGFR For Non-African Americans 54 (> 60)
[2021-04-28 07:18] LABS: Lymphocytes # 1.5 K/mcL (0.6-4.6); Monocytes # 0.4 K/mcL (0.0-1.3); Platelet Estimate Normal (Normal)
[2021-04-28] MEDS: Budesonide/Formoterol 80/4.5 1 PUFF INH IH SCH ×2 (08:01→20:49)
[2021-04-28] MEDS: Furosemide 40 MG/4 ML VIAL IVP SCH ×2 (08:09→18:24)
[2021-04-28] MEDS: lisinopriL 20 MG TABLET PO SCH (08:10)
[2021-04-28] MEDS: amLODIPine 5 MG TABLET PO SCH (08:10)
[2021-04-28] MEDS: *HR* HYDROmorphone (PF) 1 MG/ML SYRINGE IVP PRN (13:13)
[2021-04-28] MEDS: Dexmedetomidine HCl 400 MCG/100 ML MLS IVC SCH ×2 (15:11→20:20)
[2021-04-28] MEDS: lamoTRIgine 100 MG TABLET PO SCH (19:51)
[2021-04-28] MEDS: Melatonin 3 MG TABLET PO SCH (19:51)
[2021-04-28] MEDS: Benzonatate 100 MG CAPSULE PO PRN (19:51)
[2021-04-28] MEDS: Heparin 25,000UNIT/250ML 1/2NS 25,000 UNIT/250 ML IV.SOLN IVC SCH (19:51)
[2021-04-28] MEDS: traZODone 50 MG TABLET PO SCH (19:51)
[2021-04-29] MEDS: Dexmedetomidine HCl 400 MCG/100 ML MLS IVC SCH ×5 (01:40→20:04)
[2021-04-29 01:57] LABS: Hematocrit 41.2 % (37.5-50.1); Hemoglobin 13.9 g/dL (12.9-16.9); Lymphocytes # 1.4 K/mcL (0.6-4.6); Mean Corpuscular HGB Conc 33.7 g/dL (31.6-35.5); Mean Corpuscular Hemoglobin 27.1 pg (28.0-33.3); Mean Corpuscular Volume 80.3 fL (83.0-100.0); Mean Platelet Volume 9.7 fL (9.4-12.4); Platelet Count 215 K/mcL (140-400); Red Blood Count 5.13 M/mcL (4.19-5.50); Red Cell Distribution Width 14.6 % (11.5-14.5); White Blood Count 13.7 K/mcL (4.3-11.1)
[2021-04-29 02:21] LABS: Neutrophils # 12.3 K/mcL (1.6-8.9); Platelet Estimate Normal (Normal); Reactive Lymphocytes Present (Not Present)
[2021-04-29 03:48] LABS: BUN/Creatinine Ratio 66 (6-26); Blood Urea Nitrogen 90 mg/dL (8-23); Calcium 8.2 mg/dL (8.6-10.3); Carbon Dioxide 27 mEq/L (23-29); Chloride 99 mEq/L (98-107); Glucose 136 mg/dL (70-105); Osmolality,Calculated 308 (280-300); Potassium 4.6 mEq/L (3.5-5.1); Sodium 134 mEq/L (136-145); eGFR For African Americans > 60 (> 60); eGFR For Non-African Americans 51 (> 60)
[2021-04-29] MEDS: Furosemide 40 MG/4 ML VIAL IVP SCH (08:15)
[2021-04-29] MEDS: Heparin 25,000UNIT/250ML 1/2NS 25,000 UNIT/250 ML IV.SOLN IVC SCH ×3 (08:16→17:34)
[2021-04-29] MEDS: lisinopriL 20 MG TABLET PO SCH (08:16)
[2021-04-29] MEDS: amLODIPine 5 MG TABLET PO SCH (08:16)
[2021-04-29] MEDS: Budesonide/Formoterol 80/4.5 1 PUFF INH IH SCH ×2 (08:21→20:20)
[2021-04-29] MEDS ORDERED: 0.9 % Sodium Chloride 1,000 ML ONE (10:01)
[2021-04-29] MEDS ORDERED: 0.9 % Sodium Chloride 500 ML IVC ONE (10:04)
[2021-04-29] MEDS: Acetaminophen 325 MG TABLET PO PRN (17:47)
[2021-04-29] MEDS: traZODone 50 MG TABLET PO SCH (20:03)
[2021-04-29] MEDS: Melatonin 3 MG TABLET PO SCH (20:04)
[2021-04-29] MEDS: Benzonatate 100 MG CAPSULE PO PRN (20:04)
[2021-04-29] MEDS: lamoTRIgine 100 MG TABLET PO SCH (20:04)
[2021-04-30] MEDS: Dexmedetomidine HCl 400 MCG/100 ML MLS IVC SCH ×5 (02:18→23:27)
[2021-04-30] MEDS: Heparin 25,000UNIT/250ML 1/2NS 25,000 UNIT/250 ML IV.SOLN IVC SCH ×3 (02:24→22:30)
[2021-04-30 06:55] LABS: Hematocrit 41.8 % (37.5-50.1); Hemoglobin 13.9 g/dL (12.9-16.9); Mean Corpuscular HGB Conc 33.3 g/dL (31.6-35.5); Mean Corpuscular Hemoglobin 27.4 pg (28.0-33.3); Mean Corpuscular Volume 82.3 fL (83.0-100.0); Mean Platelet Volume 9.9 fL (9.4-12.4); Monocytes # 0.3 K/mcL (0.0-1.3); Platelet Count 198 K/mcL (140-400); Red Blood Count 5.08 M/mcL (4.19-5.50); Red Cell Distribution Width 14.7 % (11.5-14.5); White Blood Count 12.8 K/mcL (4.3-11.1)
[2021-04-30] MEDS: Budesonide/Formoterol 80/4.5 1 PUFF INH IH SCH ×2 (07:31→19:30)
[2021-04-30] MEDS: lisinopriL 20 MG TABLET PO SCH (08:23)
[2021-04-30] MEDS: amLODIPine 5 MG TABLET PO SCH (08:23)
[2021-04-30 08:58] LABS: Lymphocytes # 0.3 K/mcL (0.6-4.6); Neutrophils # 11.9 K/mcL (1.6-8.9); Platelet Estimate Normal (Normal)
[2021-04-30 10:02] LABS: BUN/Creatinine Ratio 63 (6-26); Blood Urea Nitrogen 71 mg/dL (8-23); Calcium 8.3 mg/dL (8.6-10.3); Carbon Dioxide 27 mEq/L (23-29); Chloride 103 mEq/L (98-107); Glucose 91 mg/dL (70-105); Osmolality,Calculated 300 (280-300); Potassium 4.8 mEq/L (3.5-5.1); Sodium 135 mEq/L (136-145); eGFR For African Americans > 60 (> 60); eGFR For Non-African Americans > 60 (> 60)
[2021-04-30] MEDS: Acetaminophen 325 MG TABLET PO PRN (11:14)
[2021-04-30] MEDS: Furosemide 20 MG/2 ML VIAL IVP SCH (17:36)
[2021-04-30] MEDS: Melatonin 3 MG TABLET PO SCH (21:04)
[2021-04-30] MEDS: lamoTRIgine 100 MG TABLET PO SCH (21:04)
[2021-04-30] MEDS: traZODone 50 MG TABLET PO SCH (21:04)
[2021-05-01 05:00] LABS: Basophils % 0.3 %; Eosinophils % 0.1 %; Hematocrit 40.4 % (37.5-50.1); Hemoglobin 13.3 g/dL (12.9-16.9); Immature Granulocytes % 2.4 % (0-4); Lymphocytes # 0.8 K/mcL (0.6-4.6); Lymphocytes % 5.3 %; Mean Corpuscular HGB Conc 32.9 g/dL (31.6-35.5); Mean Corpuscular Hemoglobin 27.2 pg (28.0-33.3); Mean Corpuscular Volume 82.6 fL (83.0-100.0); Mean Platelet Volume 10.2 fL (9.4-12.4); Monocytes # 0.3 K/mcL (0.0-1.3); Monocytes % 2.1 %; Neutrophils # 13.3 K/mcL (1.6-8.9); Platelet Count 192 K/mcL (140-400); Red Blood Count 4.89 M/mcL (4.19-5.50); Red Cell Distribution Width 14.8 % (11.5-14.5); Segmented Neutrophils % 89.8 %; White Blood Count 14.8 K/mcL (4.3-11.1)
[2021-05-01 05:12] LABS: BUN/Creatinine Ratio 61 (6-26); Blood Urea Nitrogen 71 mg/dL (8-23); Calcium 8.4 mg/dL (8.6-10.3); Carbon Dioxide 27 mEq/L (23-29); Chloride 101 mEq/L (98-107); Glucose 101 mg/dL (70-105); Osmolality,Calculated 299 (280-300); Potassium 4.8 mEq/L (3.5-5.1); Sodium 134 mEq/L (136-145); eGFR For African Americans > 60 (> 60); eGFR For Non-African Americans > 60 (> 60)
[2021-05-01] MEDS: *HR* Dextrose 50 % in Water (Syg) 50 ML SYRINGE IVP PRN ×2 (06:05→06:37)
[2021-05-01] MEDS: Dexmedetomidine HCl 400 MCG/100 ML MLS IVC SCH ×4 (06:05→23:07)
[2021-05-01] MEDS: Budesonide/Formoterol 80/4.5 1 PUFF INH IH SCH ×2 (07:41→19:58)
[2021-05-01 07:49] LABS: Ristocetin Cofactor-VWF Active 90 % (51-215); Von Willebrand Factor Ag 179 % (52-214)
[2021-05-01] MEDS: Furosemide 20 MG/2 ML VIAL IVP SCH ×2 (08:56→15:56)
[2021-05-01] MEDS: *HR* HYDROmorphone (PF) 1 MG/ML SYRINGE IVP PRN (15:56)
[2021-05-01] MEDS: *HR* LORazepam 2 MG/ML VIAL IVP PRN (15:57)
[2021-05-01] MEDS: *HR* OxyCODONE Immed Rel 5 MG TABLET PO SCH ×2 (19:38→23:01)
[2021-05-01] MEDS: Heparin 25,000UNIT/250ML 1/2NS 25,000 UNIT/250 ML IV.SOLN IVC SCH (19:55)
[2021-05-01] MEDS: lamoTRIgine 100 MG TABLET PO SCH (19:58)
[2021-05-01] MEDS: Melatonin 3 MG TABLET PO SCH (19:59)
[2021-05-01] MEDS: traZODone 50 MG TABLET PO SCH (19:59)
[2021-05-02] MEDS: *HR* LORazepam 2 MG/ML VIAL IVP PRN ×7 (00:57→16:19)
[2021-05-02] MEDS: *HR* HYDROmorphone (PF) 1 MG/ML SYRINGE IVP PRN ×6 (02:08→16:19)
[2021-05-02] MEDS ORDERED: Haloperidol Lactate 5 MG/ML VIAL IM ONE (02:11)
[2021-05-02] MEDS: Dexmedetomidine HCl 400 MCG/100 ML MLS IVC SCH ×4 (02:37→12:46)
[2021-05-02 04:09] VITALS: PULSE 70
[2021-05-02] MEDS: *HR* Dextrose 50 % in Water (Syg) 50 ML SYRINGE IVP PRN (04:42)
[2021-05-02 04:55] LABS: Basophils # 0.1 K/mcL (0.0-0.2); Basophils % 0.3 %; Hematocrit 40.9 % (37.5-50.1); Hemoglobin 13.1 g/dL (12.9-16.9); Immature Granulocytes % 2.5 % (0-4); Lymphocytes # 0.7 K/mcL (0.6-4.6); Lymphocytes % 4.3 %; Mean Corpuscular Volume 84.3 fL (83.0-100.0); Mean Platelet Volume 10.3 fL (9.4-12.4); Monocytes # 0.5 K/mcL (0.0-1.3); Monocytes % 2.8 %; Neutrophils # 15.4 K/mcL (1.6-8.9); Nucleated Red Blood Cells 0.1 /100 WBC (0); Platelet Count 173 K/mcL (140-400); Red Blood Count 4.85 M/mcL (4.19-5.50); Red Cell Distribution Width 15.1 % (11.5-14.5); Segmented Neutrophils % 90.1 %; White Blood Count 17.1 K/mcL (4.3-11.1)
[2021-05-02 05:14] LABS: BUN/Creatinine Ratio 54 (6-26); Blood Urea Nitrogen 64 mg/dL (8-23); Carbon Dioxide 28 mEq/L (23-29); Chloride 103 mEq/L (98-107); Glucose 215 mg/dL (70-105); Osmolality,Calculated 303 (280-300); Potassium 4.5 mEq/L (3.5-5.1); Sodium 134 mEq/L (136-145); eGFR For African Americans > 60 (> 60); eGFR For Non-African Americans > 60 (> 60)
[2021-05-02 07:18] VITALS: TEMP 97.9
[2021-05-02] MEDS: *HR* OxyCODONE Immed Rel 5 MG TABLET PO SCH ×2 (07:26→16:35)
[2021-05-02] MEDS: Furosemide 20 MG/2 ML VIAL IVP SCH (07:41)
[2021-05-02] MEDS: Heparin 25,000UNIT/250ML 1/2NS 25,000 UNIT/250 ML IV.SOLN IVC SCH (07:41)
[2021-05-02] MEDS: Budesonide/Formoterol 80/4.5 1 PUFF INH IH SCH (08:50)
[2021-05-02 11:00] VITALS: BP 105/95
[2021-05-02 11:34] VITALS: O2SAT 90
[2021-05-02] MEDS ORDERED: Saliva Stimulant 44.3ml BOTTLE PO PRN (12:10)
== END 2021-05-02 18:10 | disposition expired | DRG 177 ==
LOC: 3NENU → SUATTDRO 14:23
PROVIDERS: ADMIT Student in an Organized Health Care Education/Training Program; ATTEND Internal Medicine